=== PATIENT | female | born 2000 | race African-American/Black ===

== ENCOUNTER 2018-01-04 02:54 | Emergency (ER) | payer MEDICAID, SELFPAY ==
[2018-01-04 02:56] VITALS: BP 132/91; PULSE 85; RESP 16; TEMP 36.2; O2SAT 100; BMI 29.6
[2018-01-04 03:06] LABS: Bacteria 0 SEEN /hpf (None Seen); Mucous, Urine 0 SEEN /hpf (<or=2+)
[2018-01-04 03:12] LABS: Color, Urine Yellow (Yellow); Glucose, Dipstick Normal (Normal); Ketone-Dipstick Negative (Negative); Leukocyte Esterase-Dipstick 500 /ul (Negative); Nitrite-Dipstick Negative (Negative); Occult Blood-Urine 250 /ul (Negative); Protein-Dipstick 500 mg/dl (Negative); Urine Clarity Turbid (Clear); Urine Urobilinogen 4 mg/dl (Normal)
[2018-01-04 03:15] LABS: Internal QC Validated? YES +Cl - CLEAR BKGD; Pregnancy, Urine Negative Negative
[2018-01-04 03:16] LABS: Urine Bilirubin Dipstick 1 mg/dL (Negative)
[2018-01-04 03:22] LABS: Squamous Epithelial Cells - UA 5-10 SEEN /hpf (5-10); Transitional Epithelial - Ur 0-5 SEEN /hpf (0-5)
[2018-01-04 03:23] LABS: Red Blood Cells-Urine > 100 SEEN /hpf (0-5); White Blood Cells >100 SEEN /hpf (0-5)
--- NOTE | 2018-01-04 03:27 | ED.VISSUMM ---
- ER Visit Summary Date of Service: 01/04/18 Chief Complaint: Dysuria and hematuria History of Present Illness: The patient is a 17 F who presents with UTI symptoms. Over the past 3 days she reports urinary urgency frequency and dysuria. She noticed some blood in her urine tonight. She denies any vaginal bleeding or vaginal discharge. No abdominal or flank pain. No fevers nausea or vomiting. Physical Examination: Afebrile vitals are unremarkable Moist mucous membranes Heart regular rate and rhythm Lungs are clear Abdomen soft Alert Test Results: UA shows 500 leukocyte esterase 250 blood greater than 100 WBCs greater than 100 RBCs. It appeared cloudy and turbid but not grossly bloody. is negative. Emergency Department Course and Treatment: Patient has signs and symptoms consistent with cystitis. She was given a prescription for Bactrim. She was advised to follow-up as an outpatient. She understands to return for new or worsening symptoms. She was discharged. Treatment Plan: [] Disposition: Discharge Impression: Cystitis This note was generated with [employer] dictation software. It may contain incorrect words, spelling, and punctuation that were not noted in review of the chart prior to signing ED Disposition - Plan for ED Patient: Chief Complaint: Complaint Referrals: Adia Rivera NP-C [Primary Care Provider] -
--- NOTE | 2018-01-04 03:29 | ED.DEP ---
ED Disposition - Plan for ED Patient: Chief Complaint: Complaint Instructions: ED UTI Cystitis Female Prescriptions: Smz/Tmp Ds [Bactrim Ds] 1 tab PO BID #6 tab Referrals: Adia Rivera NP-C [Primary Care Provider] -
== END 2018-01-04 03:33 | disposition home or self-care (01) ==
PROVIDERS: Emergency Provider Emergency Medicine; Family Provider Nurse Practitioner Adult Health; PCP Nurse Practitioner Adult Health
DX: N30.90 Cystitis, unspecified without hematuria (principal)
CPT/HCPCS: 81001; 81025; 99282

== ENCOUNTER 2018-01-27 10:37 | Emergency (ER) | payer MEDICAID, SELFPAY ==
[2018-01-27 10:39] VITALS: BP 121/80; PULSE 77; RESP 17; TEMP 36.5; O2SAT 98; BMI 30.4
--- NOTE | 2018-01-27 11:01 | ED.DCSUM_ITS ---
- ER Visit Summary Date of Service: 01/27/18 Chief Complaint: Atraumatic right knee pain History of Present Illness: The patient is a 18 F no significant past medical or surgical history. She states that she has had atraumatic right knee pain intermittent for over a year. When she has been playing soccer her senior year of high school which was more than a year ago. It hurts more to walk on. She denies any fall, trauma, swelling or fever. She has never had any surgery. She has never had this evaluated. Nor has she ever had an MRI or imaging. Physical Examination: Well-appearing young female. Vital signs are stable afebrile. She is in no distress. H EENT exam. Lungs clear to auscultation bilaterally. Heart regular rate and rhythm no murmur. Abdomen soft nontender. Extremities moving all 4. Neurovascularly intact. The right knee has full range of motion with full flexion-extension. No effusion. No swelling. No cellulitis. The ligaments of the right knee are intact including the ACL, PCL, MCL, LCL. The extensor mechanism and is intact including the quadriceps patella and infrapatellar tendon. Again no effusion. No medial joint space tenderness. Distally the calf, right ankle and foot are nontender neurovascular intact with normal DP pulse. Right hip ankle and foot are unremarkable left lower extremity is unremarkable. Otherwise exam normal. Test Results: None Emergency Department Course and Treatment: Given the patient's had no trauma I do not think a plain film would be of any benefit also with her exam being normal. I do not think it is acute bony deformity. Treatment Plan: Ice, rest and Motrin for pain and inflammation. If not improving follow-up with Dr. Shannon of orthopedics. Disposition: Discharged Impression: Acute right knee pain secondary to tendonitis This note was generated with [employer] dictation software. It may contain incorrect words, spelling, and punctuation that were not noted in review of the chart prior to signing ED Disposition - Plan for ED Patient: Chief Complaint: Lower Extremity Injury Referrals: Adia Rivera, JELENA-C [Primary Care Provider] -
--- NOTE | 2018-01-27 11:02 | ED.DEP ---
ED Disposition - Plan for ED Patient: Disposition: Home or Assisted Living Chief Complaint: Lower Extremity Injury Instructions: ED Knee Pain [facility] Referrals: Adia Rivera NP-C [Primary Care Provider] - As Needed Racquel Shannon DO [STAFF PHYSICIAN] - 10-14 Days if not better Additional Instructions: Ice to her right knee and rested. Motrin or Advil for pain and inflammation. This should progressively get better. If not improving call and follow-up with the orthopedic doctor.
[2018-01-27] MEDS: Ibuprofen 600 MG Tablet PO (11:09)
== END 2018-01-27 11:11 | disposition home or self-care (01) ==
PROVIDERS: Emergency Provider Emergency Medicine; Family Provider Nurse Practitioner Adult Health; PCP Nurse Practitioner Adult Health
DX: M76.9 Unspecified enthesopathy, lower limb, excluding foot (principal)
CPT/HCPCS: 99282

== ENCOUNTER 2018-04-14 01:28 | Emergency (ER) | payer MEDICAID, SELFPAY ==
[2018-04-14 01:31] VITALS: BP 129/78; PULSE 79; RESP 17; TEMP 36.6; O2SAT 98; BMI 29.2
--- NOTE | 2018-04-14 02:38 | ED.VISSUMM ---
- ER Visit Summary Date of Service: 04/14/18 Chief Complaint: [] Patient from seasonal allergies. She has a runny nose. Her eyes get bloodshot and red. She uses intermittent Benadryl Claritin and Clear Eyes with minimal relief. Comes in for further evaluation and treatment. History of Present Illness: The patient is a 18 F []see above Physical Examination: [] Vital signs reviewed General: Well-nourished well-developed Head: Normocephalic atraumatic Eyes: Pupils equal round and reactive to light extraocular movements intact ENT: TMs clear no hemotympanum no trauma Neck: Nontender full range of motion Cardiovascular: Regular rate rhythm no murmurs normal S1-S2 Respiratory: No distress clear to auscultation bilaterally chest nontender Abdomen: Soft nontender nondistended normal bowel sounds no masses Back: Nontender no CVA tenderness Extremities: Nontender active range of motion ?4 extremities no trauma Skin: Normal color no trauma Neuro alert oriented cranial nerves II through XII intact normal strength sensation reflexes Test Results: [] Emergency Department Course and Treatment: [] Is very mild eyelid irritation. Otherwise her eyes appear normal. She is not having a significant allergic irritation currently. Offered a shot of Kenalog and she accepted. This should help her seasonal allergies for 2 months. She will potato picker alaway eyedrops which will help tremendously as well. Treatment Plan: [] Disposition: [] Impression: [] Allergic ocular conjunctivitis with seasonal allergies This note was generated with [employer] dictation software. It may contain incorrect words, spelling, and punctuation that were not noted in review of the chart prior to signing ED Disposition - Plan for ED Patient: Chief Complaint: Eye Problem Referrals: Adia Rivera, JELENA-C [Primary Care Provider] -
--- NOTE | 2018-04-14 02:39 | ED.DEP ---
ED Disposition - Plan for ED Patient: Disposition: Home or Assisted Living Chief Complaint: Eye Problem Instructions: ED Allergy Seasonal Referrals: Adia Rivera NP-C [Primary Care Provider] -
[2018-04-14] MEDS: Triamcinolone Acetonide 40 MG/ML Vial IM (02:47)
[2018-04-14 03:06] VITALS: BP 119/85; PULSE 69; RESP 15; O2SAT 98
== END 2018-04-14 03:09 | disposition home or self-care (01) ==
PROVIDERS: Emergency Provider Emergency Medicine; Family Provider Nurse Practitioner Adult Health; PCP Nurse Practitioner Adult Health
DX: H10.13 Acute atopic conjunctivitis, bilateral (principal); J45.909 Unspecified asthma, uncomplicated
CPT/HCPCS: 96372; 99282

== ENCOUNTER 2018-07-07 05:25 | Emergency (ER) | payer MEDICAID, SELFPAY ==
[2018-07-07 05:28] VITALS: BP 132/85; PULSE 89; RESP 18; TEMP 36.7; O2SAT 99; BMI 29.1
--- NOTE | 2018-07-07 05:42 | ED.VIS.GEN ---
History of Present Illness Chief Complaint: Headache Informant: Patient Onset: Weeks - 2-3 Context: Gradual Onset Timing: Continuous Quality: ache Location: right fronto-parietal Current Severity: Moderate Maximum Severity: Moderate Worsened by: being congested Associated Symptoms: sinus pressure/pain, congestion, cough w/ green sputum, R abd pain Narrative: Healthy 18-year-old female, she has had upper respiratory infection for 2-3 weeks and has not seen a health practitioner until now. She states she is now getting headaches for the last 4 or 5 days with this. For the past 2 days she has had intermittent sharp right mid abdominal pains that go away on their own. No nausea or vomiting or diarrhea, no urinary symptoms, no vaginal symptoms, she is not . No fevers. No earache or sore throat. She has green rhinorrhea. No dyspnea. Past Medical History - Allergies and Home Meds Allergies/Adverse Reactions: Allergies bee venom protein (honey bee) Allergy (Verified 07/07/18 05:35) Swelling chocolate flavor Allergy (Verified 07/07/18 05:35) Shortness of breath shellfish derived Allergy (Verified 07/07/18 05:35) Swelling Primary Care Physician: Adia Rivera NP-C [Primary Care Provider] - Past Medical History: None Smoking Status: Never smoker Drugs: None Review of Systems General: Denies: Chills, Fever Eyes: Denies: Visual changes - bilaterally, Diplopia ENT: Reports: Rhinorrhea. Denies: Bilateral ear pain, Sore throat Cardiovascular: Denies: Chest pain, Palpitations Respiratory: Reports: Cough, Sputum. Denies: Dyspnea Gastrointestinal: Reports: Abdominal pain. Denies: Nausea, Vomiting, Diarrhea, Melena Musculoskeletal: Denies: Neck pain, Back pain Skin: Denies: Rash Neurological: Reports: Headache. Denies: Weakness, Numbness Physical Exam Vital Signs/Narrative: Vital Signs Temp Pulse Resp BP Pulse Ox 07/07/18 05:28 98.0 F 89 18 132/85 H 99 Inital Vital Signs reviewed: Yes General: Well nourished, Well developed, - - Well-appearing, NAD. No photophobia. Head: Normocephalic, Atraumatic Eyes: Perrl, EOMI ENT: Moist mucous membranes, No rhinorrhea, TM's clear, Sinus tenderness - mostly ethmoids, - - no purulent nasal d/c. mild bilat nasal turbinate edema Neck: Supple, Nontender, No lymphadenopathy Cardiovascular: Regular rate, Regular rhythm, No murmurs. Negative for: Tachycardia Respiratory: No distress, CTA bilaterally, Chest nontender Abdomen: Soft, Nontender, Nondistended, Normal bowel sounds Skin: Normal color, No rash Neurological: Alert, Oriented x3, Cranial nerves II-XII grossly intact, Normal Strength, Normal Sensation Psychological: Normal affect Diagnostic/Tx/Re-eval - Medical Decision Making Patient is amenable to an injection of Toradol here for her symptoms. Her exam is pretty benign, but since she has had symptoms for almost 3 weeks, I think it is reasonable to try her on empiric broad-spectrum antibiotic therapy. Will prescribe her a Z-Raffy and advised to follow-up. We discussed medicines that she can use [id number] for her symptoms as well, she was given a dose of Robitussin with phenylephrine here. With regards to her abdominal discomfort, her exam is very benign and I do not think this is early appendicitis. It is sharp and intermittent, and likely intestinal in nature, which is very nonspecific at this time. I recommend treating her sinusitis with the antibiotic and if she still has the discomfort, following up with her doctor, she is always welcome to return here for worsening symptoms. She is comfortable with that plan as well. ED Disposition - Plan for ED Patient: Disposition: Home or Assisted Living Chief Complaint: Headache Diagnosis: Sinusitis, acute ethmoidal, Sinus headache, Intermittent abdominal pain Instructions: ED Headache Sinus Prescriptions: Azithromycin [Zithromax Z-Raffy] 250 mg PO UD #1 box Referrals: Adia Rivera NP-C [Primary Care Provider] - 1 Week if not improving
[2018-07-07] MEDS: Ketorolac 60 MG/2 ML Vial IM (05:47)
[2018-07-07] MEDS: guaiFENesin CF 120 ML 10 ML PO (05:53)
[2018-07-07 06:00] VITALS: BP 136/80; PULSE 75; RESP 18; O2SAT 96
== END 2018-07-07 06:04 | disposition home or self-care (01) ==
PROVIDERS: Emergency Provider Emergency Medicine; Family Provider Nurse Practitioner Adult Health; PCP Nurse Practitioner Adult Health
DX: J01.20 Acute ethmoidal sinusitis, unspecified (principal); R10.9 Unspecified abdominal pain; R51 Headache
CPT/HCPCS: 96372; 99283

== ENCOUNTER → 2019-01-03 08:29 | Outpatient (CLI) | payer MEDICAID, SELFPAY ==
--- NOTE | 2019-01-03 08:31 | RAD_ITS ---
STUDY: X-RAY - RIGHT KNEE REASON FOR EXAM: Female, 18 years old. Pain, decreased range of motion TECHNIQUE: 5 view(s) of the knee. COMPARISON: None. FINDINGS: Normal visualized distal femur. Normal visualized proximal tibia and fibula. Normal proximal tibiofibular articulation. Normal medial femorotibial compartment. Normal lateral femorotibial compartment. Normal patellofemoral articulation. The soft tissue structures are unremarkable. RAD/Knee 4 or More Views IMPRESSION: Normal x-ray examination of the knee. Electronically Signed: Tawanda Rausch MD at 8:51 EDT , Service support ,
== END ==
PROVIDERS: Family Provider Nurse Practitioner Adult Health; PCP Nurse Practitioner Adult Health; Referring Provider Physician Assistant; Visit Provider Physician Assistant
DX: M25.561 Pain in right knee (principal)
CPT/HCPCS: 73564

== ENCOUNTER 2019-01-17 17:40 | Emergency (ER) | payer MEDICAID, SELFPAY ==
[2019-01-03 08:30] VITALS: BMI 31.1
[2019-01-17 17:40] VITALS: BP 128/79; PULSE 142; RESP 16; TEMP 39.4; O2SAT 98; BMI 31.2
[2019-01-17 17:43] VITALS: BP 128/79; PULSE 142; RESP 16; TEMP 39.4; O2SAT 98
--- NOTE | 2019-01-17 18:47 | ED.VISSUMM ---
- ER Visit Summary Date of Service: 01/17/19 Chief Complaint: Fever and sore throat History of Present Illness: The patient is a 19 F past medical history of asthma. Yesterday had nausea vomiting diarrhea. Today fever and sore throat. No cough. No shortness of breath. No abdominal pain. No dysuria. No vaginal bleeding or discharge. Mom had similar symptoms for the last several days. Physical Examination: Young female no acute distress. She does have a fever of 102.9. Pulse ox 90% on room air no signs of hypoxia. HEENT exam posterior pharynx minimal erythema. No exudate. Tonsils are not enlarged. No trouble swallowing or breathing. No stridor or drooling. No peritonsillar abscess. TMs are normal bilaterally. Neck nontender. No meningismus. Able to touch chin to chest. No lymphadenopathy. Lungs clear to auscultation bilaterally. Heart tachycardic no murmur. Chest wall nontender. Abdomen soft nontender normal bowel sounds no peritoneal signs. Extremities moves all 4. Skin no rashes. No petechiae or purpura or cellulitis back nontender. Neurologically awake alert with no focal motor deficits. Test Results: None Emergency Department Course and Treatment: Patient's history and exam are consistent with viral syndrome. Treated with p.o. Tylenol here. Treatment Plan: Viral syndrome. Fluids and rest. Alternate Tylenol Motrin for fever. Follow-up if not improving. Return if worse. Disposition: Discharge Impression: Acute viral syndrome with fever This note was generated with [employer] dictation software. It may contain incorrect words, spelling, and punctuation that were not noted in review of the chart prior to signing ED Disposition - Plan for ED Patient: Referrals: Adia Rivera NP-C [Primary Care Provider] -
--- NOTE | 2019-01-17 18:49 | ED.DEP ---
ED Disposition - Plan for ED Patient: Disposition: Home or Assisted Living Instructions: ED Pharyngitis Viral Referrals: Adia Rivera NP-C [Primary Care Provider] - 3-5 Days if not improving Additional Instructions: Plenty of fluids and rest. Alternate Tylenol Motrin for fever. Follow-up if not improving return if feeling worse.
[2019-01-17 18:56] VITALS: PULSE 118; RESP 18; O2SAT 99
[2019-01-17] MEDS: Acetaminophen 500 MG Tablet 1000 MG PO (18:56)
== END 2019-01-17 18:57 | disposition home or self-care (01) ==
LOC: ED 18:55
PROVIDERS: Emergency Provider Emergency Medicine; Family Provider Nurse Practitioner Adult Health; PCP Nurse Practitioner Adult Health
DX: B34.9 Viral infection, unspecified (principal); R50.9 Fever, unspecified; R11.2 Nausea with vomiting, unspecified; J02.9 Acute pharyngitis, unspecified; R51 Headache; J45.909 Unspecified asthma, uncomplicated
CPT/HCPCS: 99283